=== PATIENT | male | born 1975 | race Caucasian/White ===

== ENCOUNTER 2022-02-11 07:31 | Emergency (ER) | payer BC ==
[2022-02-11] MEDS ORDERED: Fluorescein Opthalmic Strip ONE (07:44)
[2022-02-11] MEDS ORDERED: Tetracaine 0.5% PF 4 ML BOT ONE (07:44)
== END 2022-02-11 08:11 | disposition home or self-care (01) ==
LOC: BURERS 07:31
DX: T15.02XA Foreign body in cornea, left eye, initial encounter (principal); W45.8XXA Other foreign body or object entering through skin, initial encounter
CPT/HCPCS: 65210

== ENCOUNTER 2022-03-17 11:58 | Emergency (ER) | payer BC | END 2022-03-17 13:52 | disposition home or self-care (01) | LOC: BURERS 11:58 | DX: J10.1 Influenza due to other identified influenza virus with other respiratory manifestations (principal); Z20.822 Contact with and (suspected) exposure to COVID-19 | CPT/HCPCS: 87804; 99283; U0003; U0005 ==

== ENCOUNTER 2022-03-22 19:16 | Emergency (ER) | payer BC ==
[2022-03-22] MEDS ORDERED: Amoxicillin/Potassium Clav 875 MG TAB ONE (19:53)
== END 2022-03-22 19:57 | disposition home or self-care (01) ==
LOC: BURERS 19:16
DX: J32.9 Chronic sinusitis, unspecified (principal)
CPT/HCPCS: 99283